=== PATIENT | male | born 1955 | race Caucasian/White ===

== ENCOUNTER → 2018-07-01 08:10 | Outpatient (CLI) | payer OTHER, SELFPAY ==
[2018-07-01 09:11] LABS: Add Manual Diff / Slide Review NO; Basophils Percent Auto 0.4 % (0-2); Eosinophils Percent Auto 1.3 % (2-4); Hematocrit 44.7 % (41-53); Hemoglobin 15.2 g/dL (13.5-17.5); Lymphocytes Percent Auto 30.2 % (25-40); Mean Corpuscular Hemoglobin 28.6 PG (26-34); Mean Corpuscular Volume 84.2 fL (80-100); Monocytes Percent Auto 10.2 % (3-14); Neutrophils Absolute Auto 2900 /uL (3000-5900); Neutrophils Percent Auto 57.9 % (50-75); Platelet Count 215 X10^3/uL (150-400); Red Blood Cell Count 5.32 X10^6/uL (4.5-5.9); Red Cell Distribution Width 14.1 % (11.6-14.8); White Blood Cell Count 5.1 X10^3/uL (4.5-11.0)
[2018-07-01 09:19] LABS: Alanine Aminotransferase 41 IU/L (21-72); Albumin 4.3 g/dL (3.5-5.0); Albumin Globulin Ratio 1.5 (1.0-2.8); Alkaline Phosphatase 78 U/L (38-126); Aspartate Aminotransferase 37 IU/L (17-59); BUN Creatinine Ratio 21.1 (6-22); Bilirubin Total 0.7 mg/dL (0.2-1.3); Blood Urea Nitrogen 19 mg/dL (9-20); Calcium 9.3 mg/dL (8.4-10.2); Carbon Dioxide 31 mmol/L (22-32); Chloride 102 mmol/L (98-107); Cholesterol 194 mg/dL (140-199); Estimated Glomerular Filt Rate > 60.0 mL/min (>60); Globulin 2.9 g/dL (1.7-4.1); Glucose 109 mg/dL (80-110); HDL Cholesterol 54 mg/dL (40-60); HEMOLYSIS < 15 (0-50); LDL Cholesterol Calculated 127 mg/dL (<100); Potassium 4.7 mmol/L (3.4-5.1); Sodium 140 mmol/L (137-145); Total Protein 7.2 g/dL (6.3-8.2); Triglycerides 66 mg/dL (35-150)
[2018-07-01 12:55] LABS: Thyroid Stimulating Hormone 1.02 uIU/mL (0.47-4.68)
== END ==
PROVIDERS: Family Provider Family Medicine; PCP Family Medicine; Visit Provider Family Medicine
DX: Z13.0 Encounter for screening for diseases of the blood and blood-forming organs and certain disorders involving the immune mechanism (principal); Z12.5 Encounter for screening for malignant neoplasm of prostate; Z13.220 Encounter for screening for lipoid disorders; Z13.29 Encounter for screening for other suspected endocrine disorder
CPT/HCPCS: 36415; 80053; 80061; 84153; 84443; 85025

== ENCOUNTER → 2019-06-18 11:15 | Outpatient (CLI) | payer OTHER, SELFPAY ==
[2019-06-18 12:03] LABS: Add Manual Diff / Slide Review NO; Basophils Absolute Auto 0 /uL (0-100); Basophils Percent Auto 0.4 % (0-2); Eosinophils Absolute Auto 100 /uL (0-450); Hematocrit 42.2 % (41-53); Hemoglobin 14.6 g/dL (13.5-17.5); Lymphocytes Absolute Auto 1500 /uL (1100-4500); Lymphocytes Percent Auto 27.9 % (25-40); Mean Corpuscular HGB Conc 34.5 % (30-36); Mean Corpuscular Hemoglobin 29.4 PG (26-34); Mean Corpuscular Volume 85.1 fL (80-100); Monocytes Absolute Auto 500 /uL (0-900); Monocytes Percent Auto 8.2 % (3-14); Neutrophils Absolute Auto 3500 /uL (1500-7000); Neutrophils Percent Auto 62.5 % (50-75); Platelet Count 205 X10^3/uL (150-400); Red Blood Cell Count 4.96 X10^6/uL (4.5-5.9); Red Cell Distribution Width 13.7 % (11.6-14.8); White Blood Cell Count 5.6 X10^3/uL (4.5-11.0)
[2019-06-18 12:26] LABS: Alanine Aminotransferase 62 IU/L (21-72); Albumin 4.2 g/dL (3.5-5.0); Albumin Globulin Ratio 1.4 (1.0-2.8); Alkaline Phosphatase 81 U/L (38-126); Aspartate Aminotransferase 38 IU/L (17-59); BUN Creatinine Ratio 17.8 (6-22); Bilirubin Total 0.6 mg/dL (0.2-1.3); Blood Urea Nitrogen 16 mg/dL (9-20); Calcium 9.6 mg/dL (8.4-10.2); Carbon Dioxide 29 mmol/L (22-32); Chloride 99 mmol/L (98-107); Cholesterol 207 mg/dL (140-199); Estimated Glomerular Filt Rate > 60.0 mL/min (>60); Globulin 2.9 g/dL (1.7-4.1); Glucose 95 mg/dL (80-110); HDL Cholesterol 50 mg/dL (40-60); HEMOLYSIS < 15 (0-50); LDL Cholesterol Calculated 140 mg/dL (<100); Potassium 4.5 mmol/L (3.4-5.1); Sodium 137 mmol/L (137-145); Total Protein 7.1 g/dL (6.3-8.2); Triglycerides 84 mg/dL (35-150)
[2019-06-18 12:55] LABS: Prostate Specific Antigen Scrn 1.92 ng/mL (0.1-4.0)
== END ==
PROVIDERS: PCP Family Medicine; Visit Provider Family Medicine
DX: Z13.220 Encounter for screening for lipoid disorders (principal); Z12.5 Encounter for screening for malignant neoplasm of prostate; Z13.0 Encounter for screening for diseases of the blood and blood-forming organs and certain disorders involving the immune mechanism
CPT/HCPCS: 36415; 80053; 80061; 85025; G0103

== ENCOUNTER → 2019-11-10 08:20 | Outpatient (CLI) | payer OTHER, SELFPAY ==
[2019-11-10 09:18] LABS: Cholesterol 188 mg/dL (140-199); HDL Cholesterol 41 mg/dL (40-60); LDL Cholesterol Calculated 132 mg/dL (<100); Triglycerides 74 mg/dL (35-150)
== END ==
PROVIDERS: PCP Family Medicine; Visit Provider Family Medicine
DX: E78.2 Mixed hyperlipidemia (principal)
CPT/HCPCS: 36415; 80061

== ENCOUNTER → 2020-06-14 07:30 | Outpatient (CLI) | payer OTHER, SELFPAY ==
[2020-06-14 09:37] LABS: Add Manual Diff / Slide Review NO; Basophils Absolute Auto 0 /uL (0-100); Basophils Percent Auto 0.3 % (0-2); Eosinophils Absolute Auto 100 /uL (0-450); Eosinophils Percent Auto 1.1 % (2-4); Hemoglobin 14.7 g/dL (13.5-17.5); Lymphocytes Absolute Auto 1500 /uL (1100-4500); Lymphocytes Percent Auto 33.4 % (25-40); Mean Corpuscular HGB Conc 33.5 % (30-36); Mean Corpuscular Hemoglobin 28.8 PG (26-34); Mean Corpuscular Volume 85.8 fL (80-100); Monocytes Absolute Auto 400 /uL (0-900); Monocytes Percent Auto 9.5 % (3-14); Neutrophils Absolute Auto 2500 /uL (1500-7000); Neutrophils Percent Auto 55.7 % (50-75); Platelet Count 209 X10^3/uL (150-400); Red Blood Cell Count 5.12 X10^6/uL (4.5-5.9); Red Cell Distribution Width 13.3 % (11.6-14.8); White Blood Cell Count 4.4 X10^3/uL (4.5-11.0)
[2020-06-14 09:39] LABS: Alanine Aminotransferase 32 IU/L (<50); Albumin 4.1 g/dL (3.5-5.0); Albumin Globulin Ratio 1.3 (1.0-2.8); Alkaline Phosphatase 77 U/L (38-126); Aspartate Aminotransferase 39 IU/L (17-59); BUN Creatinine Ratio 22.5 (6-22); Bilirubin Total 0.5 mg/dL (0.2-1.3); Blood Urea Nitrogen 18 mg/dL (9-20); Calcium 9.2 mg/dL (8.4-10.2); Carbon Dioxide 32 mmol/L (22-32); Chloride 102 mmol/L (98-107); Cholesterol 194 mg/dL (140-199); Estimated Glomerular Filt Rate > 60.0 mL/min (>60); Globulin 3.2 g/dL (1.7-4.1); Glucose 102 mg/dL (80-110); HDL Cholesterol 45 mg/dL (40-60); HEMOLYSIS < 15 (0-50); LDL Cholesterol Calculated 137 mg/dL (<100); Potassium 4.4 mmol/L (3.4-5.1); Sodium 137 mmol/L (137-145); Total Protein 7.3 g/dL (6.3-8.2); Triglycerides 61 mg/dL (35-150)
[2020-06-14 10:07] LABS: Prostate Specific Antigen Scrn 1.75 ng/mL (0.1-4.0)
[2020-06-14 10:19] LABS: Thyroid Stimulating Hormone 1.14 uIU/mL (0.47-4.68)
== END ==
PROVIDERS: PCP Family Medicine; Referring Provider Family Medicine; Visit Provider Family Medicine
DX: Z12.5 Encounter for screening for malignant neoplasm of prostate (principal); E03.9 Hypothyroidism, unspecified; E78.2 Mixed hyperlipidemia
CPT/HCPCS: 36415; 80053; 80061; 84443; 85025; G0103

== ENCOUNTER → 2020-07-19 07:42 | Outpatient (CLI) | payer OTHER, SELFPAY ==
[2020-07-28 16:14] LABS: LDL Particle 1584
[2020-07-28 16:15] LABS: HDL-Cholesterol 57; LDL-Cholsterol 124
[2020-07-28 16:16] LABS: Cholesterol, Total 194; HDL-Particle (Total) 32.1; Triglycerides 68
[2020-07-28 16:17] LABS: LDL Size 21.3; Small LDL- Particle 526
== END ==
PROVIDERS: PCP Family Medicine; Referring Provider Family Medicine; Visit Provider Family Medicine
DX: E78.2 Mixed hyperlipidemia (principal)
CPT/HCPCS: 36415; 80061; 83704

== ENCOUNTER → 2021-01-29 15:25 | Outpatient (CLI) | payer OTHER, SELFPAY ==
[2021-01-29] MEDS: COVID-19 VACC, Ad26(JANSSEN)/PF 0.5 ML IM (15:30)
== END ==
PROVIDERS: PCP Family Medicine; Visit Provider Internal Medicine
DX: Z23 Encounter for immunization (principal)
CPT/HCPCS: 0031A; 91303

== ENCOUNTER → 2021-06-22 09:37 | Outpatient (CLI) | payer OTHER, SELFPAY ==
[2021-06-22 11:16] LABS: Cholesterol 211 mg/dL (140-199); HDL Cholesterol 56 mg/dL (40-60); LDL Cholesterol Calculated 137 mg/dL (<100); Triglycerides 92 mg/dL (35-150)
== END ==
PROVIDERS: PCP Family Medicine; Referring Provider Family Medicine; Visit Provider Family Medicine
DX: E78.2 Mixed hyperlipidemia (principal)
CPT/HCPCS: 36415; 80061

== ENCOUNTER → 2021-10-13 15:08 | Outpatient (CLI) | payer OTHER, SELFPAY ==
[2021-10-13 16:50] LABS: COVID19 -Nasal RAPID Negative (Negative)
== END ==
PROVIDERS: PCP Family Medicine; Referring Provider Surgery; Visit Provider Surgery
DX: Z01.812 Encounter for preprocedural laboratory examination (principal); Z20.822 Contact with and (suspected) exposure to COVID-19
CPT/HCPCS: 87635

== ENCOUNTER 2021-10-15 08:15 | Day surgery (SDC) | payer OTHER, SELFPAY ==
[2021-10-15 08:30] VITALS: BP 134/78; PULSE 92; RESP 16; TEMP 36.6; O2SAT 96; BMI 26.4
[2021-10-15] MEDS: LACTATED RINGERS 1,000 ML 42 ML IV (08:47)
--- NOTE | 2021-10-15 09:45 | PM.HP.1 ---
History of Present Illness History of Present Illness Date Patient Seen: 10/15/21 Time Patient Seen: 09:45 Chief complaint: VTC Narrative: 66-year-old man who had a colonoscopy 5 years ago. He has had polyps removed and was told to repeat his colonoscopy at 5 years. Patient History Medical History (Updated 10/15/21 @ 09:46 by Matt Ahuja MD) Abnormal skin growth Carpal tunnel syndrome (~2013) Chicken pox Chronic back pain (~1979) Colon polyps (~2011) Foot pain (~2012) History of psoriasis Hypothyroidism Kidney stones Measles Mumps Psoriasis (~2008) Surgical History (Updated 07/05/18 @ 21:39 by Gracie Alvarado) Anesthesia History of surgery (~05/21/13) History of surgery (~10/02/14) Status post knee surgery (~1987) Family & Social History Family History (Updated 01/21/15 @ 00:00 by Conversion Provider) Mother Diabetes mellitus Stroke Social History: household members family Tobacco & Substance use: Smoking Status Former smoker alcohol intake current alcohol intake frequency a few times a week Substance Use Type does not use Meds Home Medications and Allergies Home Medications Medication Instructions Recorded Confirmed Type clobetasol 0.05 % topical ointment 1 applictn TOP BID PRN #30 gram 06/25/20 10/15/21 Rx Vitamin B 1 tab PO DAILY 06/30/21 10/15/21 History Vitamin B12 1 tab PO DAILY 06/30/21 10/15/21 History Vitamin C 1 tab PO DAILY 06/30/21 10/15/21 History Vitamin D3 1 tab PO DAILY 06/30/21 10/15/21 History Allergies Allergy/AdvReac Type Severity Reaction Status Date / Time lanolin AdvReac Verified 06/30/21 15:08 petrolatum,white AdvReac Verified 10/15/21 08:23 [From Vaseline] Exam Vital Signs (past 8 hours): - 10/15/21 08:30 Temperature 97.8 F Pulse Rate 92 H Respiratory Rate 16 Blood Pressure 134/78 Pulse Oximetry 96 Oxygen Delivery Method Room Air Const General: healthy appearing Eyes General: appearance normal, both eyes and all related structures Resp Effort & Inspection: normal respiratory effort Assessment & Plan Assessment and plan (1) History of colon polyps: Status: Acute Plan 66-year-old man with a history of colon polyps due for colonoscopy. We will proceed. COVID-19 COVID-19 status: Negative Result date/Date tested (Pos, Neg/Pending): 10/14/21 Time Spent With Patient Critical Care time: I spent a total of [] minutes of critical care time on this patient's care today; this time is exclusive of procedural time.
[2021-10-15] MEDS: fentaNYL 250 MCG/5 ML INJ IV (09:55)
[2021-10-15] MEDS: MIDAZOLAM 5 MG/5 ML VIAL IV (09:57)
--- NOTE | 2021-10-15 10:10 | PM.OP.COLON ---
Operative Date/Time/Diagnoses Date of procedure: 10/15/21 Time of procedure: 10:10 Pre-op diagnosis: History of colon polyps Post-op diagnosis: same Procedure & Clinicians Study performed: Colonoscopy Same procedure as scheduled: Yes Indications: History of colon polyps Surgeon: Matt Ahuja Procedure Notes SCOAP/Timeout: Yes Procedure in detail: Procedure: The patient was brought to the endoscopy suite, placed in left lateral decubitus position. The patient was connected to monitoring devices. A time-out was performed. Sedation was administered. Once the patient was adequately sedated, a digital rectal exam was performed and was normal. The scope was then inserted and advanced to the cecum where the appendiceal orifice was identified and photographed. The scope was then slowly withdrawn over greater than 6 minutes. Mucosa was thoroughly inspected. No abnormalities were noted. The scope was retroflexed in the rectum. No abnormalities are noted. The scope was straightened and removed. The patient was awakened and brought to recovery. Versed: 5 mg Fentanyl: 75 mcg EBL: 0 Findings: Completely normal colon Scope withdrawal time: 9 Sedation minutes: 15 Specimen(s): none sent Post-procedure Recommendations: Colonoscopy in 10 years Disposition: PACU
[2021-10-15 10:12] VITALS: BP 113/67; PULSE 71; RESP 14; TEMP 36.3; O2SAT 96
[2021-10-15 10:17] VITALS: BP 107/75; PULSE 74; RESP 18; O2SAT 97
[2021-10-15 10:22] VITALS: BP 111/75; PULSE 71; RESP 17; O2SAT 97
[2021-10-15 10:27] VITALS: BP 111/73; PULSE 67; RESP 18; TEMP 36.7; O2SAT 96
== END 2021-10-15 10:35 | disposition home or self-care (01) ==
LOC: ENDO 08:16
PROVIDERS: PCP Family Medicine; Referring Provider Surgery; Visit Provider Surgery
PROC: 0DJD8ZZ Inspection of Lower Intestinal Tract, Via Natural or Artificial Opening Endoscopic (ICD-10-PCS; CPT 45378; principal; 2021-10-15 09:30)
DX: Z12.11 Encounter for screening for malignant neoplasm of colon (principal); Z86.010 Personal history of colon polyps; E03.9 Hypothyroidism, unspecified
CPT/HCPCS: 45378; 99152; J2250; J3010

== ENCOUNTER → 2021-10-21 10:56 | Outpatient (CLI) | payer OTHER, SELFPAY ==
[2021-10-21 11:54] LABS: COVID19 -Nasal RAPID Negative (Negative)
== END ==
PROVIDERS: PCP Family Medicine; Visit Provider Nurse Practitioner Family
DX: Z20.822 Contact with and (suspected) exposure to COVID-19 (principal)
CPT/HCPCS: 87635

== ENCOUNTER → 2022-07-06 11:58 | Outpatient (CLI) | payer OTHER, SELFPAY ==
[2022-07-06 13:40] LABS: Add Manual Diff / Slide Review NO; Basophils Absolute Auto 0 /uL (0-100); Basophils Percent Auto 0.3 % (0-2); Eosinophils Absolute Auto 0 /uL (0-450); Eosinophils Percent Auto 0.3 % (2-4); Hematocrit 44.8 % (41-53); Hemoglobin 15.4 g/dL (13.5-17.5); Lymphocytes Absolute Auto 1200 /uL (1100-4500); Lymphocytes Percent Auto 16.9 % (25-40); Mean Corpuscular HGB Conc 34.5 % (30-36); Mean Corpuscular Volume 84.1 fL (80-100); Monocytes Absolute Auto 500 /uL (0-900); Monocytes Percent Auto 7.3 % (3-14); Neutrophils Absolute Auto 5300 /uL (1500-7000); Neutrophils Percent Auto 75.2 % (50-75); Platelet Count 236 X10^3/uL (150-400); Red Blood Cell Count 5.33 X10^6/uL (4.5-5.9); Red Cell Distribution Width 13.6 % (11.6-14.8)
[2022-07-06 13:52] LABS: Alanine Aminotransferase 52 IU/L (<50); Albumin 4.4 g/dL (3.5-5.0); Albumin Globulin Ratio 1.2 (1.0-2.8); Alkaline Phosphatase 87 U/L (38-126); Aspartate Aminotransferase 43 IU/L (17-59); BUN Creatinine Ratio 18.1 (6-22); Bilirubin Total 0.5 mg/dL (0.2-1.3); Blood Urea Nitrogen 15 mg/dL (9-20); Calcium 9.6 mg/dL (8.4-10.2); Carbon Dioxide 30 mmol/L (22-32); Chloride 99 mmol/L (98-107); Cholesterol 231 mg/dL (140-199); Estimated Glomerular Filt Rate > 60 mL/min (>60); Globulin 3.6 g/dL (1.7-4.1); Glucose 100 mg/dL (80-110); HDL Cholesterol 49 mg/dL (40-60); HEMOLYSIS < 15 (0-50); LDL Cholesterol Calculated 162 mg/dL (<100); Potassium 4.4 mmol/L (3.4-5.1); Sodium 138 mmol/L (137-145); Triglycerides 99 mg/dL (35-150)
[2022-07-06 14:21] LABS: Prostate Specific Antigen Scrn 4.28 ng/mL (0.1-4.0)
[2022-07-06 14:40] LABS: Vitamin B12 482 pg/mL (239-931)
== END ==
PROVIDERS: PCP Family Medicine; Referring Provider Family Medicine; Visit Provider Family Medicine
DX: E78.2 Mixed hyperlipidemia (principal); G62.9 Polyneuropathy, unspecified; Z12.5 Encounter for screening for malignant neoplasm of prostate
CPT/HCPCS: 36415; 80053; 80061; 82607; 83036; 85025; G0103

== ENCOUNTER → 2022-08-20 15:48 | Outpatient (CLI) | payer OTHER, SELFPAY ==
[2022-08-27 07:19] LABS: PSA Free % 16.4 % (.); PSA, Total 3.6 ng/mL (0.0-4.0)
== END ==
PROVIDERS: PCP Family Medicine; Referring Provider Family Medicine; Visit Provider Family Medicine
DX: R97.20 Elevated prostate specific antigen [PSA] (principal)
CPT/HCPCS: 36415; 84153; 84154

== ENCOUNTER 2023-01-18 19:29 | Emergency (ER) | payer MEDICARE, OTHER, SELFPAY ==
[2023-01-18 19:36] VITALS: BP 158/79; PULSE 76; RESP 16; TEMP 37.1; O2SAT 99; BMI 26.4
--- NOTE | 2023-01-18 19:53 | DI.CT.S_ITS ---
PROCEDURE: CT HEAD/BRAIN WO CON INDICATIONS: Retrograde amnesia TECHNIQUE: Noncontrast 4.5 mm thick angled axial sections acquired from the foramen magnum to the vertex, with coronal and sagittal reformats. For radiation dose reduction, the following was used: automated exposure control, adjustment of mA and/or kV according to patient size. COMPARISON: None. FINDINGS: Image quality: Excellent. CSF spaces: Basal cisterns are patent. No extra-axial fluid collections. Ventricles are normal in size and shape. Brain: No intracranial hemorrhage, mass, or mass effect. Edmondson-white matter interface appears preserved. Skull and face: Calvarium and visualized facial bones are intact, without suspicious lesions. Sinuses: Visualized sinuses and mastoids are clear. IMPRESSION: 1. No acute intracranial abnormality. Dictated by: Nick Izquierdo M.D. on 01/18/2023 at 20:54 Approved by: Nick Izquierdo M.D. on 01/18/2023 at 20:55
--- NOTE | 2023-01-18 19:54 | PC.NURSE ---
Triage assessment reviewed with Dr. smith. Code Stroke not being called at this time per Dr. Smith.
[2023-01-18 20:06] LABS: Add Manual Diff / Slide Review NO; Basophils Absolute Auto 0 /uL (0-100); Basophils Percent Auto 0.7 % (0-2); Eosinophils Absolute Auto 100 /uL (0-450); Eosinophils Percent Auto 1.8 % (2-4); Hematocrit 41.1 % (41-53); Hemoglobin 14.2 g/dL (13.5-17.5); Lymphocytes Absolute Auto 2100 /uL (1100-4500); Lymphocytes Percent Auto 32.8 % (25-40); Mean Corpuscular HGB Conc 34.6 % (30-36); Mean Corpuscular Volume 83.8 fL (80-100); Monocytes Absolute Auto 500 /uL (0-900); Monocytes Percent Auto 8.4 % (3-14); Neutrophils Absolute Auto 3500 /uL (1500-7000); Neutrophils Percent Auto 56.3 % (50-75); Platelet Count 219 X10^3/uL (150-400); White Blood Cell Count 6.3 X10^3/uL (4.5-11.0)
[2023-01-18 20:25] LABS: Alanine Aminotransferase 34 IU/L (<50); Albumin 4.2 g/dL (3.5-5.0); Albumin Globulin Ratio 1.2 (1.0-2.8); Alkaline Phosphatase 102 U/L (38-126); Aspartate Aminotransferase 43 IU/L (17-59); BUN Creatinine Ratio 30.4 (6-22); Bilirubin Total 0.2 mg/dL (0.2-1.3); Blood Urea Nitrogen 24 mg/dL (9-20); Calcium 9.1 mg/dL (8.4-10.2); Carbon Dioxide 30 mmol/L (22-32); Chloride 102 mmol/L (98-107); Creatine Kinase 92 U/L (55-170); Estimated Glomerular Filt Rate > 60 mL/min (>60); Globulin 3.4 g/dL (1.7-4.1); Glucose 150 mg/dL (80-110); HEMOLYSIS 26 (0-50); Lipase 108 U/L (23-300); Potassium 4.1 mmol/L (3.4-5.1); Sodium 137 mmol/L (137-145); Total Protein 7.6 g/dL (6.3-8.2)
[2023-01-18 20:26] LABS: Ethanol (ETOH) < 10 mg/dL
[2023-01-18 20:28] VITALS: BP 153/71; RESP 18; O2SAT 99
[2023-01-18 20:37] LABS: Troponin I < 0.012 ng/mL (0.01-0.034)
[2023-01-18 20:48] LABS: Ammonia (NH3) < 9 umol/L (9-30)
[2023-01-18 20:50] LABS: Appearance Urine UA CLEAR; Bilirubin Urine UA NEGATIVE (NEGATIVE); Color Urine UA YELLOW; Glucose Urine UA NEGATIVE (Negative); Ketones Urine UA NEGATIVE (NEGATIVE); Leukocyte Esterase Urine UA NEGATIVE (NEGATIVE); Nitrite Urine UA NEGATIVE (Negative); Occult Blood Urine UA NEGATIVE (Negative); Protein Urine UA NEGATIVE (Negative); Specific Gravity Urine UA >=1.030 (1.000-1.035); UR Morphine/Opiate cutoff 300 Negative (Negative); Ur Creatinine Normal (Normal); Ur Specific Gravity Normal (Normal); Urine Amphetamines Negative (Negative); Urine Barbiturates Negative (Negative); Urine Benzodiazepines Negative (Negative); Urine Cocaine Negative (Negative); Urine MDMA Negative (Negative); Urine Methadone Negative (Negative); Urine Methamphetamines Negative (Negative); Urine Oxycodone Negative (Negative); Urine Phencyclidine Negative (Negative); Urine Tetrahydrocannabinol Negative (Negative); Urine Tricyclic Antidepressant Negative (Negative); Urine pH Normal (Normal); Urobilinogen Urine UA 0.2 E.U./dL (0.2)
[2023-01-18 20:58] LABS: Bacteria Urine None Seen; Culture Indicated Urine Cult Not Indicated; RBC Urine 0-1/HPF (0-5/HPF); Squamous Epithelial Cell Urine 0-1 /HPF (0-5/HPF); WBC Urine 0-1/HPF (0-5/HPF)
[2023-01-18 21:02] LABS: Thyroid Stimulating Hormone 0.985 uIU/mL (0.47-4.68)
--- NOTE | 2023-01-18 21:58 | ED_ITS ---
HPI - Neuro Symptoms/Deficit General Chief Complaint: Neuro Symptoms/Deficit Stated Complaint: lost 3 months of memory in last hour Time Seen by Provider: 01/18/23 19:35 Source: patient and family Mode of arrival: Ambulatory Limitations: no limitations History of Present Illness HPI Narrative: Patient is a 67-year-old male who is here for evaluation of memory issues. Per report from the patient and the family this morning he was at his normal state of health. At 1 point this afternoon he went and took a nap and when he woke up he stated that he was not feeling very well. He thought that maybe he was having a dream. He went to go use the restroom. He stated that he generally just did not feel right but had no headache or vision changes or chest pain or shortness of breath or numbness or tingling in his arms or legs. He went down to go talk with his son. He states that his son did a COVID test on him and it was negative. He then realized that he was having problems remembering events of the day. He also states that he was having problems remembering the questions that his son had just asked him. There was no reports that the patient was having any problems slurring his words. He is never had this happened to him in the past. At the time of my evaluation it had been approximately 4-5 hours since the onset of the symptoms and the patient states he was feeling much better. He can now remember the events of the day that he could not remember before. He also was able to piece together the events that happened after he woke up. On Anticoagulants: No Related Data Previous Rx's Medication Instructions Recorded clobetasol 0.05 % topical ointment 1 applictn topical BID PRN rash 06/25/20 #30 grams Allergies Allergy/AdvReac Type Severity Reaction Status Date / Time lanolin AdvReac Verified 06/30/21 15:08 petrolatum,white AdvReac Verified 10/15/21 08:23 [From Vaseline] Review of Systems Review of Systems ROS Unobtainable: All systems reviewed & are unremarkable except as noted in HPI and below Neurologic Neurologic: Reports system reviewed and no additional complaints, except as documented Hematologic/Lymphatic On Anticoagulants: No Patient History Medical History Abnormal skin growth Carpal tunnel syndrome (~2013) Change in stool habits Chicken pox Chronic back pain (~1979) Colon polyps (~2011) Foot pain (~2012) History of psoriasis Hypothyroidism Kidney stones Measles Mumps Peripheral neuropathy Psoriasis (~2008) Rectal pressure Surgical History (Updated 07/05/18 @ 21:39 by Gracie Alvarado) Anesthesia History of surgery (~05/21/13) History of surgery (~10/02/14) Status post knee surgery (~1987) Family History (Updated 01/21/15 @ 00:00 by Conversion Provider) Mother Diabetes mellitus Stroke Social History household members: family Smoking Status: Former smoker alcohol intake: current Smoking Status: Former smoker alcohol intake frequency: a few times a week Substance Use Type: does not use Exam Initial Vital Signs Initial Vital Signs: Vital Signs Temperature 98.8 F 01/18/23 19:36 Pulse Rate 76 01/18/23 19:36 Respiratory Rate 16 01/18/23 19:36 Blood Pressure 158/79 H 01/18/23 19:36 Pulse Oximetry 99 01/18/23 19:36 Oxygen Delivery Method Room Air 01/18/23 19:36 Const General: cooperative and comfortable HENMT Head: normal to inspection and normocephalic Resp Effort & Inspection: normal respiratory effort Auscultation: clear to auscultation bilaterally Cardio Rate: regular rate Rhythm: regular rhythm GI Inspection: normal to inspection and non-distended Skin General: no rashes or lesions noted Neuro Cognition: normal cognition Speech: speech normal Gait: normal gait Motor: muscle tone normal throughout Sensory Exam: no sensory deficits noted Extrem General: normal to inspection and capillary refill normal Scores GCS Anais coma scale eye opening: Spontaneous [place] coma scale verbal response: Orientated [place] coma scale motor response: Obey commands [place] coma scale total score: 15 Course Orders Ordered: ED Orders 01/18/23 18:55 Complete Blood Count AUTO DIFF Stat Comprehensive Metabolic Panel Stat Ethanol (ETOH) Stat Lipase Stat Thyroid Stimulating Hormone Stat Troponin & CK Cardiac Panel Stat 01/18/23 19:53 CT head/brain wo con Stat EKG-12 Lead Stat 01/18/23 20:20 Ammonia (NH3) Stat Urinalysis and Microscopic Stat Urine Drug Screen, Rapid Stat Vital Signs Vital signs: Vital Signs - 8 hr 01/18/23 19:36 01/18/23 20:28 01/18/23 22:11 Temperature 98.8 F Pulse Rate 76 66 Respiratory Rate 16 18 Blood Pressure 158/79 H 153/71 H 131/67 Pulse Oximetry 99 99 95 Oxygen Delivery Method Room Air Room Air Room Air MDM - Neuro Symptoms/Deficit Lab Data Attestation: I reviewed the patient's lab results. 01/18/23 18:55 01/18/23 18:55 Labs: Lab Results 01/18/23 01/18/23 01/18/23 Range/Units 18:55 18:55 18:55 WBC 6.3 (4.5-11.0) X10^3/uL RBC 4.90 (4.5-5.9) X10^6/uL Hgb 14.2 (13.5-17.5) g/dL Hct 41.1 (41-53) % MCV 83.8 (80-100) fL MCH 29.0 (26-34) PG MCHC 34.6 (30-36) % RDW 14.0 (11.6-14.8) % Plt Count 219 (150-400) X10^3/uL Neut % (Auto) 56.3 (50-75) % Lymph % (Auto) 32.8 (25-40) % [place] % (Auto) 8.4 (3-14) % Eos % (Auto) 1.8 L (2-4) % Baso % (Auto) 0.7 (0-2) % Neut # (Auto) 3500 (6851-1788) /uL Lymph # (Auto) 2100 (8424-5983) /uL [place] # (Auto) 500 (0-900) /uL Eos # (Auto) 100 (0-450) /uL Baso # (Auto) 0 (0-100) /uL Sodium (137-145) mmol/L Potassium (3.4-5.1) mmol/L Chloride (98-107) mmol/L Carbon Dioxide (22-32) mmol/L BUN (9-20) mg/dL Creatinine (0.66-1.25) mg/dL Estimated GFR (>60) mL/min BUN/Creatinine Ratio (6-22) Glucose (80-110) mg/dL Calcium (8.4-10.2) mg/dL Total Bilirubin (0.2-1.3) mg/dL AST (17-59) IU/L ALT (<50) IU/L Alkaline Phosphatase (38-126) U/L Ammonia (9-30) umol/L Total Creatine Kinase (55-170) U/L CK-MB (CK-2) CK-MB (CK-2) Rel Index Troponin I (0.01-0.034) ng/mL Total Protein (6.3-8.2) g/dL Albumin (3.5-5.0) g/dL Globulin (1.7-4.1) g/dL Albumin/Globulin Ratio (1.0-2.8) Lipase (23-300) U/L TSH 0.985 (0.47-4.68) uIU/mL Urine Color Urine Appearance Urine pH (4.5-8.0) Ur Specific [place] (1.000-1.035) Urine Protein (Negative) Urine Glucose (UA) (Negative) g/dL Urine Ketones (NEGATIVE) Urine Occult Blood (Negative) Urine Nitrate (Negative) Urine Bilirubin (NEGATIVE) Urine Urobilinogen (0.2) E.U./dL Ur Leukocyte Esterase (NEGATIVE) Urine RBC (0-5/HPF) Urine WBC (0-5/HPF) Ur Squamous Epith Cells (0-5/HPF) Urine Bacteria (None) Ur Culture Indicated? U Opiates 300ng/mL cut (Negative) Ur Oxycodone Screen (Negative) Urine Methadone Screen (Negative) Ur Barbiturates Screen (Negative) U Tricyclic Antidepress (Negative) Ur Phencyclidine Scrn (Negative) Ur Amphetamines Screen (Negative) U Methamphetamines Scrn (Negative) Ur MDMA Scrn (Ecstasy) (Negative) U Benzodiazepines Scrn (Negative) Urine Cocaine Screen (Negative) U Marijuana (THC) Screen (Negative) Ethyl Alcohol < 10 ( - 10) mg/dL 01/18/23 01/18/23 01/18/23 Range/Units 18:55 18:55 20:20 WBC (4.5-11.0) X10^3/uL RBC (4.5-5.9) X10^6/uL Hgb (13.5-17.5) g/dL Hct (41-53) % MCV (80-100) fL MCH (26-34) PG MCHC (30-36) % RDW (11.6-14.8) % Plt Count (150-400) X10^3/uL Neut % (Auto) (50-75) % Lymph % (Auto) (25-40) % [place] % (Auto) (3-14) % Eos % (Auto) (2-4) % Baso % (Auto) (0-2) % Neut # (Auto) (2379-3679) /uL Lymph # (Auto) (6177-4743) /uL [place] # (Auto) (0-900) /uL Eos # (Auto) (0-450) /uL Baso # (Auto) (0-100) /uL Sodium 137 (137-145) mmol/L Potassium 4.1 (3.4-5.1) mmol/L Chloride 102 (98-107) mmol/L Carbon Dioxide 30 (22-32) mmol/L BUN 24 H (9-20) mg/dL Creatinine 0.79 (0.66-1.25) mg/dL Estimated GFR > 60 (>60) mL/min BUN/Creatinine Ratio 30.4 H (6-22) Glucose 150 H (80-110) mg/dL Calcium 9.1 (8.4-10.2) mg/dL Total Bilirubin 0.2 (0.2-1.3) mg/dL AST 43 (17-59) IU/L ALT 34 (<50) IU/L Alkaline Phosphatase 102 (38-126) U/L Ammonia < 9 L (9-30) umol/L Total Creatine Kinase 92 (55-170) U/L CK-MB (CK-2) TNP CK-MB (CK-2) Rel Index TNP Troponin I < 0.012 (0.01-0.034) ng/mL Total Protein 7.6 (6.3-8.2) g/dL Albumin 4.2 (3.5-5.0) g/dL Globulin 3.4 (1.7-4.1) g/dL Albumin/Globulin Ratio 1.2 (1.0-2.8) Lipase 108 (23-300) U/L TSH (0.47-4.68) uIU/mL Urine Color Urine Appearance Urine pH (4.5-8.0) Ur Specific [place] (1.000-1.035) Urine Protein (Negative) Urine Glucose (UA) (Negative) g/dL Urine Ketones (NEGATIVE) Urine Occult Blood (Negative) Urine Nitrate (Negative) Urine Bilirubin (NEGATIVE) Urine Urobilinogen (0.2) E.U./dL Ur Leukocyte Esterase (NEGATIVE) Urine RBC (0-5/HPF) Urine WBC (0-5/HPF) Ur Squamous Epith Cells (0-5/HPF) Urine Bacteria (None) Ur Culture Indicated? U Opiates 300ng/mL cut (Negative) Ur Oxycodone Screen (Negative) Urine Methadone Screen (Negative) Ur Barbiturates Screen (Negative) U Tricyclic Antidepress (Negative) Ur Phencyclidine Scrn (Negative) Ur Amphetamines Screen (Negative) U Methamphetamines Scrn (Negative) Ur MDMA Scrn (Ecstasy) (Negative) U Benzodiazepines Scrn (Negative) Urine Cocaine Screen (Negative) U Marijuana (THC) Screen (Negative) Ethyl Alcohol ( - 10) mg/dL 01/18/23 01/18/23 Range/Units 20:20 20:20 WBC (4.5-11.0) X10^3/uL RBC (4.5-5.9) X10^6/uL Hgb (13.5-17.5) g/dL Hct (41-53) % MCV (80-100) fL MCH (26-34) PG MCHC (30-36) % RDW (11.6-14.8) % Plt Count (150-400) X10^3/uL Neut % (Auto) (50-75) % Lymph % (Auto) (25-40) % [place] % (Auto) (3-14) % Eos % (Auto) (2-4) % Baso % (Auto) (0-2) % Neut # (Auto) (4505-6161) /uL Lymph # (Auto) (8487-9261) /uL [place] # (Auto) (0-900) /uL Eos # (Auto) (0-450) /uL Baso # (Auto) (0-100) /uL Sodium (137-145) mmol/L Potassium (3.4-5.1) mmol/L Chloride (98-107) mmol/L Carbon Dioxide (22-32) mmol/L BUN (9-20) mg/dL Creatinine (0.66-1.25) mg/dL Estimated GFR (>60) mL/min BUN/Creatinine Ratio (6-22) Glucose (80-110) mg/dL Calcium (8.4-10.2) mg/dL Total Bilirubin (0.2-1.3) mg/dL AST (17-59) IU/L ALT (<50) IU/L Alkaline Phosphatase (38-126) U/L Ammonia (9-30) umol/L Total Creatine Kinase (55-170) U/L CK-MB (CK-2) CK-MB (CK-2) Rel Index Troponin I (0.01-0.034) ng/mL Total Protein (6.3-8.2) g/dL Albumin (3.5-5.0) g/dL Globulin (1.7-4.1) g/dL Albumin/Globulin Ratio (1.0-2.8) Lipase (23-300) U/L TSH (0.47-4.68) uIU/mL Urine Color Yellow Urine Appearance Clear Urine pH 6.0 (4.5-8.0) Ur Specific [place] >=1.030 H (1.000-1.035) Urine Protein Negative (Negative) Urine Glucose (UA) Negative (Negative) g/dL Urine Ketones Negative (NEGATIVE) Urine Occult Blood Negative (Negative) Urine Nitrate Negative (Negative) Urine Bilirubin Negative (NEGATIVE) Urine Urobilinogen 0.2 (0.2) E.U./dL Ur Leukocyte Esterase Negative (NEGATIVE) Urine RBC 0-1/hpf (0-5/HPF) Urine WBC 0-1/hpf (0-5/HPF) Ur Squamous Epith Cells 0-1 /hpf (0-5/HPF) Urine Bacteria None seen (None) Ur Culture Indicated? Cult not indicated U Opiates 300ng/mL cut Negative (Negative) Ur Oxycodone Screen Negative (Negative) Urine Methadone Screen Negative (Negative) Ur Barbiturates Screen Negative (Negative) U Tricyclic Antidepress Negative (Negative) Ur Phencyclidine Scrn Negative (Negative) Ur Amphetamines Screen Negative (Negative) U Methamphetamines Scrn Negative (Negative) Ur MDMA Scrn (Ecstasy) Negative (Negative) U Benzodiazepines Scrn Negative (Negative) Urine Cocaine Screen Negative (Negative) U Marijuana (THC) Screen Negative (Negative) Ethyl Alcohol ( - 10) mg/dL Point of Care Testing Glucose POC [address] scan - head: Radiologist's Impression: PROCEDURE:? CT HEAD/BRAIN WO CON ? INDICATIONS:? Retrograde amnesia ? TECHNIQUE:? Noncontrast 4.5 mm thick angled axial sections acquired from the foramen magnum to the vertex, with coronal and sagittal reformats.? For radiation dose reduction, the following was used:? automated exposure control, adjustment of mA and/or kV according to patient size.? ? COMPARISON:? None. ? FINDINGS:? Image quality:? Excellent.? ? CSF spaces:? Basal cisterns are patent.? No extra-axial fluid collections.? Ventricles are normal in size and shape.? ? Brain:? No intracranial hemorrhage, mass, or mass effect.? Edmondson-white matter interface appears preserved.? ? Skull and face:? Calvarium and visualized facial bones are intact, without suspicious lesions.? ? Sinuses:? Visualized sinuses and mastoids are clear.? ? IMPRESSION:? ? 1. No acute intracranial abnormality.? MDM Narrative Medical decision making narrative: The patient's symptoms have almost completely resolved. It appeared that he had both issues with anterograde amnesia and retrograde amnesia encompassing several hours prior to the event. Here in the emergency department he did not have any focal neurologic deficit and did not appear to have any focal neurologic deficit except for the memory issues at the time of the event. His head CT is unremarkable. Labs are unremarkable. Here in the ER he seems to have no problems forming new memories. He was able to name objects and then repeat those objects back to me several minutes later upon prompting. His presentation is consistent with TGA. I have low suspicion for CVA given the improvement/resolution of his symptoms and given the fact that his symptoms only seem to be memory issues I also have low suspicion for TIA. Plan will be is to discharge the patient home and have him follow-up with his primary doctor. He already has an appointment scheduled with his primary doctor for approximately 1 0 days from now. This was scheduled prior to the events of today. We discussed specific return precautions. But he in his family expressed understanding and agreement. Discharge Plan Departure Patient Disposition: Home Clinical Impression: Transient global amnesia Instructions: DI for Transient Global Amnesia Activity Restrictions/Additional Instructions: I recommend that you continue to take any medications as directed. Keep your scheduled appointment that you have with your primary doctor the beginning of next month. Return to the emergency department for any new or worsening sympt oms. Prescriptions: No Action clobetasol 0.05 % ointment 1 applictn TOP BID PRN (Reason: rash) Qty: 30 5RF Referrals: Tima Faustin DO [Primary Care Provider] - Stand Alone Forms: Patient Portal/API
[2023-01-18 22:11] VITALS: BP 131/67; PULSE 66; O2SAT 95
== END 2023-01-18 22:16 | disposition home or self-care (01) ==
PROVIDERS: Emergency Provider Emergency Medicine; PCP Family Medicine
DX: G45.4 Transient global amnesia (principal)
CPT/HCPCS: 36415; 70450; 80053; 80305; 80320; 81001; 82140; 82550; 82962; 83690; 84443; 84484; 85025; 99283; 99284

== ENCOUNTER → 2023-01-28 10:15 | Outpatient (CLI) | payer MEDICARE, OTHER, SELFPAY ==
[2023-01-28 13:36] LABS: HIV 1 & 2 Ab/Ag 4th Gen Combo NEGATIVE (NEGATIVE)
== END ==
PROVIDERS: PCP Family Medicine; Referring Provider Family Medicine; Visit Provider Family Medicine
DX: Z21 Asymptomatic human immunodeficiency virus [HIV] infection status (principal)
CPT/HCPCS: 36415; 87389

== ENCOUNTER → 2023-10-03 14:44 | Outpatient (CLI) | payer MEDICARE, OTHER, SELFPAY ==
--- NOTE | 2023-10-03 14:45 | DI.US.S_ITS ---
PROCEDURE: US ABD AORTA ANEURYSM SCREEN INDICATIONS: Personal history of other endocrine, nutritional and metabol TECHNIQUE: Real time scanning was performed of the aorta and iliac arteries, with image documentation. COMPARISON: None. FINDINGS: Aorta: Proximal aortic diameter measures 2.3 cm. Mid-aorta measures 1.6 cm. Distal aortic diameter is 1.4 cm. Iliac arteries: Right common iliac artery measures 1.5 cm. Left common iliac artery measures 1.2 cm. IMPRESSION: No evidence of abdominal aortic aneurysm. Dictated by: Lokesh Palafox M.D. on 10/03/2023 at 15:45 Approved by: Lokesh Palafox M.D. on 10/03/2023 at 15:46
== END ==
PROVIDERS: PCP Family Medicine; Referring Provider Family Medicine; Visit Provider Family Medicine
DX: R97.20 Elevated prostate specific antigen [PSA]; E78.2 Mixed hyperlipidemia; Z86.39 Personal history of other endocrine, nutritional and metabolic disease; Z13.6 Encounter for screening for cardiovascular disorders
CPT/HCPCS: 76706

== ENCOUNTER 2023-11-16 12:59 | Emergency (ER) | payer MEDICARE, OTHER, SELFPAY ==
[2023-11-16 13:02] VITALS: BP 158/76; PULSE 77; RESP 20; TEMP 36.4; O2SAT 99; BMI 27.8
[2023-11-16] MEDS: PROPARACAINE 0.5% OPHTH SOL 1 DROPS EYE-BOTH (14:05)
[2023-11-16 14:37] VITALS: BP 147/75; PULSE 70; RESP 16; O2SAT 98
--- NOTE | 2023-11-16 15:49 | ED.EYEPROB ---
HPI - Eye Problem <Lincoln Aparicio PA-C - Last Filed: 11/16/23 15:59> General Chief complaint: Eye Problems Stated complaint: blurry vision Time Seen by Provider: 11/16/23 13:16 Source: patient Mode of arrival: Ambulatory History of Present Illness HPI Narrative: 68-year-old male with past medical history hyperlipidemia, peripheral neuropathy presents to the ED with 1 day of blurry vision. Patient states he was in the library earlier today, reading a book when he acutely felt his vision getting blurry. Patient noted that it was his central field of vision bilaterally that was blurry. He describes it as not being able to see a person's face who is standing in front of him, versus he is able to see the arms and legs just fine. Patient drove home from the library, noted that the stop signs were blurry as well. He saw the word stop as just a white blur. Patient states that since then, his vision issues have resolved and his vision is no longer blurry in the ED now. Patient says his eyes do feel somewhat irritated and are watering. Patient denies diplopia. Patient denies any other symptoms including fever, chills, chest pain, shortness of breath, lightheadedness, dizziness, balance problems, unsteadiness, syncope. Patient does appear photophobic, wearing dark sunglasses in the ED and prefers to have the lights off. Related Data Previous Rx's Medication Instructions Recorded clobetasol 0.05 % topical ointment 1 applictn topical BID PRN rash 06/25/20 #30 grams Allergies Allergy/AdvReac Type Severity Reaction Status Date / Time lanolin AdvReac Verified 09/30/23 14:02 petrolatum,white AdvReac Verified 09/30/23 14:02 [From Vaseline] Review of Systems <Lincoln Aparicio PA-C - Last Filed: 11/16/23 15:59> Constitutional Constitutional: Denies chills, Denies fatigue, Denies fever(s), Denies frequent falls, Denies lethargy and Denies weakness Eyes Eyes: Reports blurry vision, Denies change in vision, Denies eye discharge, Denies irritation, Denies loss of vision and Reports photophobia ENT Ears, Nose, Mouth, and Throat: Denies change in voice, Denies dizziness, Denies neck pain, Denies sore throat and Denies throat swelling Cardiovascular Cardiovascular: Denies chest pain, Denies irregular heart rhythm, Denies lightheadedness, Denies palpitations, Denies dyspnea, Denies dyspnea on exertion and Denies orthopnea Respiratory Respiratory: Denies cough, Denies dyspnea, Denies dyspnea on exertion and Denies wheezing Gastrointestinal Gastrointestinal: Denies abdominal pain, Denies change in bowel habits, Denies diarrhea, Denies nausea and Denies vomiting Musculoskeletal Musculoskeletal: Denies neck pain and Denies numbness Integumentary/Breasts Skin/Breast: Denies pruritus, Denies erythema, Denies rash and Denies wounds Neurologic Neurologic: Denies behavioral changes, Denies confusion, Denies dizziness, Denies frequent falls, Denies loss of vision, Denies numbness and Denies weakness Psychiatric Psychiatric: Denies anxiety, Denies behavioral changes, Denies confusion, Denies depression, Denies homicidal ideation and Denies suicidal ideation Endocrine Endocrine: Denies fatigue, Denies flushing and Denies palpitations Hematologic/Lymphatic Hematologic/Lymphatic: Denies easy bruising Allergic/Immunologic Allergic/Immunologic: Denies urticaria, Denies throat swelling and Denies wheezing Patient History <Lincoln Aparicio PA-C - Last Filed: 11/16/23 15:59> Medical History Acute pain of right shoulder HIV test positive Rectal pressure Change in stool habits Peripheral neuropathy Abnormal skin growth Hypothyroidism History of psoriasis Foot pain (~2012) Chronic back pain (~1979) Carpal tunnel syndrome (~2013) Psoriasis (~2008) Mumps Measles Chicken pox Kidney stones Colon polyps (~2011) Surgical History Anesthesia History of surgery (~10/02/14) History of surgery (~05/21/13) Status post knee surgery (~1987) Family History Mother Diabetes mellitus Stroke Social History household members: family Smoking Status: Former smoker alcohol intake: current Smoking Status: Former smoker alcohol intake frequency: holidays/special occasions only Substance Use Type: does not use Exam <Lincoln Aparicio PA-C - Last Filed: 11/16/23 15:59> Narrative Exam Narrative: Const General:?cooperative, healthy appearing and comfortable [facility] Head:?normal to inspection Ears:?hearing grossly normal bilaterally Nose:?external nose normal Face and sinus:?normal facial exam and sinuses nontender Mouth:?oral mucosae normal Throat:?posterior oropharynx normal Eyes General:? There is mild bilateral ciliary flush. PERRLA. Vision 20/30 bilaterally without refractory correction. Patient appears photophobic. Neck Neck:?normal visual inspection and no lymphadenopathy noted Resp Effort & Inspection:?normal respiratory effort Auscultation:?clear to auscultation bilaterally Cardio Rate:?regular rate Rhythm:?regular rhythm Neuro General:?patient alert, patient awake and patient oriented x3 Initial Vital Signs Initial Vital Signs: Vital Signs Temperature 97.6 F 11/16/23 13:02 Pulse Rate 77 11/16/23 13:02 Respiratory Rate 20 11/16/23 13:02 Blood Pressure 158/76 H 11/16/23 13:02 Pulse Oximetry 99 11/16/23 13:02 Oxygen Delivery Method Room Air 11/16/23 13:02 <Awilda Childs MD - Last Filed: 11/16/23 16:59> Initial Vital Signs Initial Vital Signs: Vital Signs Temperature 97.6 F 11/16/23 13:02 Pulse Rate 77 11/16/23 13:02 Respiratory Rate 20 11/16/23 13:02 Blood Pressure 158/76 H 11/16/23 13:02 Pulse Oximetry 99 11/16/23 13:02 Oxygen Delivery Method Room Air 11/16/23 13:02 Course <Lincoln Aparicio PA-C - Last Filed: 11/16/23 15:59> Orders Ordered: Discontinued Medications Proparacaine HCl (Proparacaine 0.5% Ophth Alisia) 1 drops EYE-BOTH NOW ONE Stop: 11/16/23 13:52 Last Admin: 11/16/23 14:05 Dose: 1 drops Documented By: BS Vital Signs Vital signs: Vital Signs - 8 hr 11/16/23 13:02 11/16/23 14:37 Temperature 97.6 F Pulse Rate 77 70 Respiratory Rate 20 16 Blood Pressure 158/76 H 147/75 H Pulse Oximetry 99 98 Oxygen Delivery Method Room Air Room Air <Awilda Childs MD - Last Filed: 11/16/23 16:59> Orders Ordered: Discontinued Medications Proparacaine HCl (Proparacaine 0.5% Ophth Alisia) 1 drops EYE-BOTH NOW ONE Stop: 11/16/23 13:52 Last Admin: 11/16/23 14:05 Dose: 1 drops Documented By: BS Vital Signs Vital signs: Vital Signs - 8 hr 11/16/23 13:02 11/16/23 14:37 Temperature 97.6 F Pulse Rate 77 70 Respiratory Rate 20 16 Blood Pressure 158/76 H 147/75 H Pulse Oximetry 99 98 Oxygen Delivery Method Room Air Room Air MDM - Eye Problem <Lincoln Aparicio PA-C - Last Filed: 11/16/23 15:59> MDM Narrative Medical decision making narrative: 68-year-old male with past medical history hyperlipidemia, peripheral neuropathy presents to the ED with 1 day of blurry vision. Concern for retinal detachment versus glaucoma versus AMD versus other. Unlikely TIA, given presentation of bilateral eye blurriness and eye irritation. Bedside ultrasound negative for retinal detachment or vitreous hemorrhage. Unable to obtain eye pressures in the ED. 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 Henrandez, patient has seen him recently and is scheduled to see him again in November. Consulted Dr. Hernandez and Dr. Hernandez will see him in his office today. Discussed findings with patient and patient agrees to go to Dr. Hernandez's office today. ED return precautions discussed with patient. Patient verbalized understanding. Medical records reviewed: Yes Discharge Plan Departure Patient Disposition: Home Clinical Impression: Blurred vision Instructions: DI for Visual Field Disturbances Activity Restrictions/Additional Instructions: You were evaluated in the ED today for blurry vision. We consulted your seeing eye dog trainer Dr. Hernandez, he will see you today. Please head on over to Dr. Hernandez's office for further evaluation. Return to the ED if you have worsening symptoms, balance issues, lightheadedness, dizziness, chest pain, shortness of breath. Prescriptions: No Action clobetasol 0.05 % ointment 1 applictn TOP BID PRN (Reason: rash) Qty: 30 5RF Referrals: Tima Faustin DO [Primary Care Provider] - Stand Alone Forms: Patient Portal/API ED Sign-out <Awilda Childs MD - Last Filed: 11/16/23 16:59> Cosign ED Attending Cosfaviolaature Attestation: I did not see this patient.
== END 2023-11-16 14:43 | disposition home or self-care (01) ==
PROVIDERS: Emergency Provider Student in an Organized Health Care Education/Training Program; PCP Family Medicine
DX: H53.8 Other visual disturbances (principal)
CPT/HCPCS: 99282

== ENCOUNTER → 2023-11-21 16:44 | Outpatient (CLI) | payer MEDICARE, OTHER, SELFPAY ==
[2023-11-21 17:11] LABS: Hematocrit 42.5 % (41-53); Hemoglobin 14.6 g/dL (13.5-17.5); Mean Corpuscular HGB Conc 34.4 % (30-36); Mean Corpuscular Hemoglobin 28.7 PG (26-34); Mean Corpuscular Volume 83.5 fL (80-100); Platelet Count 244 X10^3/uL (150-400); Red Blood Cell Count 5.09 X10^6/uL (4.5-5.9); White Blood Cell Count 6.2 X10^3/uL (4.5-11.0)
[2023-11-21 17:58] LABS: Erythrocyte Sedimentation Rate 14 MM/HR (0-15)
[2023-11-21 18:02] LABS: Alanine Aminotransferase 46 IU/L (<50); Albumin 4.4 g/dL (3.5-5.0); Albumin Globulin Ratio 1.3 (1.0-2.8); Alkaline Phosphatase 79 U/L (38-126); Aspartate Aminotransferase 41 IU/L (17-59); BUN Creatinine Ratio 21.3 (6-22); Bilirubin Total 0.5 mg/dL (0.2-1.3); Blood Urea Nitrogen 19 mg/dL (9-20); Calcium 9.6 mg/dL (8.4-10.2); Carbon Dioxide 30 mmol/L (22-32); Chloride 101 mmol/L (98-107); Estimated Glomerular Filt Rate > 60 mL/min (>60); Globulin 3.4 g/dL (1.7-4.1); Glucose 100 mg/dL (80-110); HEMOLYSIS < 15 (0-50); Potassium 4.4 mmol/L (3.4-5.1); Sodium 137 mmol/L (137-145); Total Protein 7.8 g/dL (6.3-8.2)
[2023-11-21 18:05] LABS: C-Reactive Protein Quant 0.9 mg/dL (<1.0)
[2023-11-21 18:31] LABS: TSH w/ Reflex to FT4 1.18 uIU/mL (0.47-4.68)
[2023-11-21 18:32] LABS: Prostate Specific Antigen Scrn 3.37 ng/mL (0.1-4.0)
== END ==
LOC: LAB 16:47
PROVIDERS: PCP Family Medicine; Referring Provider Ophthalmology; Visit Provider Family Medicine
DX: Z00.00 Encounter for general adult medical examination without abnormal findings (principal); Z12.5 Encounter for screening for malignant neoplasm of prostate; E78.2 Mixed hyperlipidemia; R97.20 Elevated prostate specific antigen [PSA]; H53.9 Unspecified visual disturbance; Z86.39 Personal history of other endocrine, nutritional and metabolic disease
CPT/HCPCS: 36415; 80053; 84443; 85027; 85651; 86140; G0103

== ENCOUNTER → 2023-11-23 15:45 | Outpatient (CLI) | payer MEDICARE, OTHER, SELFPAY ==
--- NOTE | 2023-11-23 15:46 | DI.MRI.S_ITS ---
PROCEDURE: MR HEAD/BRAIN WO CON INDICATIONS: Vision changes, worsening - normal vision exam. Hx of TIA TECHNIQUE: Non-contrast axial T1 spin echo, axial T2 fast spin echo, sagittal and axial FLAIR, coronal T2 fast spin echo, axial gradient echo, axial diffusion and ADC through the brain. COMPARISON: , CT, CT HEAD/BRAIN WO CON, 01/18/2023, 19:58. FINDINGS: Image quality: Excellent. CSF spaces: Ventricles appear symmetric in size and shape. Basal cisterns are patent. No extra-axial fluid collections. Brain: No intracranial bleeds or mass effects. There is mild brain parenchymal volume loss. There are minimal periventricular and deep white matter chronic small vessel ischemic changes. Brainstem appears normal. Diffusion-weighted images show no acute infarct. No chronic ischemic insults. Normal intravascular flow voids are present. Skull and face: Calvarial bone marrow is normal in signal. Orbits are normal. Sinuses: Sinuses and mastoids are clear. IMPRESSION: No findings of acute or subacute infarction can be seen. No prior territorial infarct can be seen. Dictated by: Sohail Sanchez M.D. on 11/23/2023 at 15:55 Approved by: Sohail Sanchez M.D. on 11/23/2023 at 15:56
== END ==
PROVIDERS: PCP Family Medicine; Referring Provider Family Medicine; Visit Provider Family Medicine
DX: H54.7 Unspecified visual loss (principal); H53.8 Other visual disturbances; Z86.73 Personal history of transient ischemic attack (TIA), and cerebral infarction without residual deficits
CPT/HCPCS: 70551

== ENCOUNTER → 2024-12-15 09:00 | Outpatient (CLI) | payer MEDICARE, OTHER, SELFPAY ==
[2024-12-15 10:00] LABS: Add Manual Diff / Slide Review NO; Basophils Absolute Auto 0 /uL (0-100); Basophils Percent Auto 0.1 % (0-2); Eosinophils Absolute Auto 0 /uL (0-450); Eosinophils Percent Auto 0.5 % (2-4); Hematocrit 44.7 % (41-53); Hemoglobin 15.3 g/dL (13.5-17.5); Lymphocytes Absolute Auto 1500 /uL (1100-4500); Lymphocytes Percent Auto 40.8 % (25-40); Mean Corpuscular HGB Conc 34.3 % (30-36); Mean Corpuscular Hemoglobin 29.1 PG (26-34); Mean Corpuscular Volume 84.6 fL (80-100); Monocytes Absolute Auto 700 /uL (0-900); Monocytes Percent Auto 17.6 % (3-14); Neutrophils Absolute Auto 1500 /uL (1500-7000); Platelet Count 205 X10^3/uL (150-400); Red Blood Cell Count 5.28 X10^6/uL (4.5-5.9); Red Cell Distribution Width 14.2 % (11.6-14.8); White Blood Cell Count 3.7 X10^3/uL (4.5-11.0)
[2024-12-15 10:28] LABS: Alanine Aminotransferase 56 IU/L (<50); Albumin 4.3 g/dL (3.5-5.0); Albumin Globulin Ratio 1.5 (1.0-2.8); Alkaline Phosphatase 79 U/L (38-126); Aspartate Aminotransferase 43 IU/L (17-59); BUN Creatinine Ratio 20.7 (6-22); Bilirubin Total 0.5 mg/dL (0.2-1.3); Blood Urea Nitrogen 19 mg/dL (9-20); Calcium 9.2 mg/dL (8.4-10.2); Carbon Dioxide 27 mmol/L (22-32); Chloride 101 mmol/L (98-107); Estimated Glomerular Filt Rate > 60 mL/min (>60); Globulin 2.8 g/dL (1.7-4.1); Glucose 103 mg/dL (80-110); HEMOLYSIS < 15 (0-50); Potassium 4.5 mmol/L (3.4-5.1); Sodium 136 mmol/L (137-145); Total Protein 7.1 g/dL (6.3-8.2)
[2024-12-15 10:59] LABS: Prostate Specific Antigen Scrn 2.82 ng/mL (0.1-4.0)
[2024-12-15 16:49] LABS: Hemoglobin A1C% w Est Avg Glu 5.7 % (4.0-6.0)
== END ==
LOC: LAB 09:04
PROVIDERS: PCP Family Medicine; Referring Provider Family Medicine; Visit Provider Family Medicine
DX: R97.20 Elevated prostate specific antigen [PSA] (principal); R73.03 Prediabetes; Z12.5 Encounter for screening for malignant neoplasm of prostate; E78.2 Mixed hyperlipidemia
CPT/HCPCS: 36415; 80053; 80061; 83036; 83704; 83721; 85025; G0103

== ENCOUNTER → 2025-10-03 07:23 | Outpatient (CLI) | payer MEDICARE, OTHER, SELFPAY ==
[2025-10-03 07:49] LABS: Add Manual Diff / Slide Review NO; Hematocrit 46.0 % (41-53); Hemoglobin 15.7 g/dL (13.5-17.5); Lymphocytes Absolute Auto 1800 /uL (1100-4500); Mean Corpuscular HGB Conc 34.2 % (30-36); Mean Corpuscular Hemoglobin 28.6 PG (26-34); Mean Corpuscular Volume 83.6 fL (80-100); Platelet Count 249 X10^3/uL (150-400)
[2025-10-03 08:13] LABS: Alanine Aminotransferase 36 IU/L (<50); Albumin 4.3 g/dL (3.5-5.0); Albumin Globulin Ratio 1.4 (1.0-2.8); Alkaline Phosphatase 79 U/L (38-126); Blood Urea Nitrogen 20 mg/dL (9-20); Calcium 9.3 mg/dL (8.4-10.2); Carbon Dioxide 26 mmol/L (22-32); Chloride 104 mmol/L (98-107); Estimated Glomerular Filt Rate > 60 mL/min (>60); Globulin 3.0 g/dL (1.7-4.1); Glucose 124 mg/dL (70-99); HEMOLYSIS < 15 (0-50); Potassium 4.6 mmol/L (3.4-5.1); Sodium 139 mmol/L (137-145); Total Protein 7.3 g/dL (6.3-8.2)
== END ==
PROVIDERS: PCP Family Medicine; Referring Provider Family Medicine; Visit Provider Family Medicine
DX: Z12.5 Encounter for screening for malignant neoplasm of prostate (principal); E78.2 Mixed hyperlipidemia; G62.9 Polyneuropathy, unspecified
CPT/HCPCS: 36415; 80053; 80061; 83704; 83721; 85025; G0103